=== PATIENT | male | born 1955 | race Caucasian/White ===

== ENCOUNTER → 2021-06-11 | Outpatient (CLI) | payer MEDICARE | END | disposition home or self-care (01) | LOC: CARD 14:42 | PROVIDERS: ATTEND Internal Medicine | DX: R06.02 Shortness of breath (principal) ==

== ENCOUNTER 2021-06-27 02:39 | Emergency (ER) | payer MEDICARE ==
[~2021-06-27] VITALS: Ht 172.7 cm; Wt 77.1 kg
[2021-06-27] MEDS ORDERED: NAPROXEN250 MG PO (03:04)
== END 2021-06-27 03:11 | disposition home or self-care (01) ==
LOC: ED 02:39
DX: S93.401A Sprain of unspecified ligament of right ankle, initial encounter (principal); X50.1XXA Overexertion from prolonged static or awkward postures, initial encounter; Y93.89 Activity, other specified; Y92.89 Other specified places as the place of occurrence of the external cause; Y99.8 Other external cause status

== ENCOUNTER 2021-09-24 23:01 | Emergency (ER) | payer MEDICARE ==
[~2021-09-24 23:01] MED LIST: NAPROXEN250 MG PO
[2021-09-24 23:35] LABS: BASO % 0.2 % (0.0-1.0); EOS # 0.1 10*3/uL (0.0-0.4); EOS % 1.1 % (1.0-4.0); HEMATOCRIT 40.8 % (42.0-52.0); LYMPH # 0.3 10*3/uL (1.3-4.4); LYMPH % 7.2 % (27.0-41.0); MEAN CELL VOLUME 93.6 fl (80.0-94.0); MEAN CORPUSCULAR HGB CONC 33.1 g/dl (33.0-37.0); MONO # 0.6 10*3/uL (0.1-1.0); NEUT # 3.4 10*3/uL (2.3-7.9); NEUT % 77.3 % (47.0-73.0); PLATELET COUNT AUTOMATED 165 10*3/uL (130-400); RED BLOOD COUNT 4.36 10*6/uL (4.50-5.90); RED CELL DISTRI WIDTH 12.2 % (0-14.5); WHITE BLOOD COUNT 4.4 10*3/uL (4.8-10.8)
[2021-09-24 23:51] LABS: ALKALINE PHOSPHATASE 97 U/L (45-117); BUN 39 mg/dl (7-24); CHLORIDE 109 mmol/L (98-107); CREATININE 1.31 mg/dL (0.70-1.30); POTASSIUM 5.5 mmol/L (3.5-5.1); SGOT/AST 26 IU/L (3-35); SGPT/ALT 26 U/L (12-78); SODIUM 135 mmol/L (136-145); TOTAL PROTEIN 7.7 gm/dL (6.4-8.2)
[2021-09-25] MEDS ORDERED: METFORMIN HYDR500 MG PO (02:04)
[2021-09-25] MEDS ORDERED: NEURONTIN300 MG PO (02:04)
== END 2021-09-25 02:20 | disposition home or self-care (01) ==
LOC: ED 23:01
PROVIDERS: Internal Medicine
DX: U07.1 COVID-19 (principal); E87.8 Other disorders of electrolyte and fluid balance, not elsewhere classified; R73.9 Hyperglycemia, unspecified; N17.9 Acute kidney failure, unspecified

== ENCOUNTER 2022-07-09 20:54 | Emergency (ER) | payer MEDICARE ==
[~2022-07-09] VITALS: Ht 172.7 cm; Wt 72.6 kg
[~2022-07-09 20:54] MED LIST changes: +METFORMIN HYDR500 MG PO; +NEURONTIN300 MG PO
== END 2022-07-09 21:50 ==
LOC: ED 20:54
DX: Z13.89 Encounter for screening for other disorder (principal)

== ENCOUNTER → 2023-08-22 | Outpatient (CLI) | payer MEDICARE ==
[2023-08-22 12:22] LABS: BUN 18 mg/dl (9-23); CHLORIDE 109 mmol/L (98-107); POTASSIUM 5.2 mmol/L (3.4-5.1); T3 UPTAKE 32.4 % (22.4-36.7)
== END | disposition home or self-care (01) ==
LOC: LAB 11:35
PROVIDERS: ATTEND Internal Medicine
DX: E03.9 Hypothyroidism, unspecified (principal); I10 Essential (primary) hypertension

== ENCOUNTER 2024-10-03 07:41 | Emergency (ER) | payer MEDICARE ==
[~2024-10-03] VITALS: Wt 77.1 kg
[2024-10-03] MEDS ORDERED: Dexamethasone Sodium Phospha 20 MG/5 ML VIAL IM ONE (08:25)
[2024-10-03] MEDS ORDERED: MEDROL DOSEPAK4 MG PO (09:09)
== END 2024-10-03 09:13 | disposition home or self-care (01) ==
LOC: ED 07:41
DX: S46.912A Strain of unspecified muscle, fascia and tendon at shoulder and upper arm level, left arm, initial encounter (principal); Z88.0 Allergy status to penicillin; Z79.899 Other long term (current) drug therapy; Z79.84 Long term (current) use of oral hypoglycemic drugs; X58.XXXA Exposure to other specified factors, initial encounter; Y93.89 Activity, other specified; Y92.89 Other specified places as the place of occurrence of the external cause; Y99.8 Other external cause status

== ENCOUNTER → 2024-10-12 | Outpatient (CLI) | payer MEDICARE ==
[~2024-10-12] MED LIST changes: +MEDROL DOSEPAK4 MG PO
== END | disposition home or self-care (01) ==
LOC: MRI 07:32
PROVIDERS: ATTEND Internal Medicine
DX: M19.012 Primary osteoarthritis, left shoulder (principal); M75.52 Bursitis of left shoulder; M62.89 Other specified disorders of muscle; M77.8 Other enthesopathies, not elsewhere classified; M25.512 Pain in left shoulder

== ENCOUNTER 2024-12-06 11:18 | Emergency (ER) | payer OTHER ==
[~2024-12-06] VITALS: Ht 170.1 cm; Wt 64.4 kg
[2024-12-06] MEDS ORDERED: ACTOS30 M1 PO (11:25)
[2024-12-06] MEDS ORDERED: LISINOPRIL5 MG PO (11:25)
[2024-12-06] MEDS ORDERED: MELOXICAM7.5 MG PO (11:25)
[2024-12-06] MEDS ORDERED: SIMVASTATIN10 MG PO (11:25)
[2024-12-06] MEDS ORDERED: GLIMEPIRIDE4 M1 PO (11:25)
[2024-12-06] MEDS ORDERED: SODIUM CHLORIDE 0.9% 1,000 ML IV SCH (11:30)
[2024-12-06] MEDS ORDERED: IOHEXOL 300 MG/ML 100 ML VIAL IV ONE (11:35)
[2024-12-06] MEDS ORDERED: Tdap Vaccine 0.5 ML SYR (Adult Vaccine) IM ONE (11:40)
[2024-12-06 11:53] LABS: BASO # 0.0 10*3/uL (0.0-0.1); BASO % 0.2 % (0.0-1.0); EOS # 0.1 10*3/uL (0.0-0.4); EOS % 1.3 % (1.0-4.0); MEAN CELL VOLUME 97.5 fl (80.0-94.0); MEAN CORPUSCULAR HGB 31.4 pg (27.0-31.0); MEAN PLATELET VOLUME 10.3 fl (9.6-12.3); MONO # 0.6 10*3/uL (0.1-1.0); MONO % 10.1 % (3.0-9.0); NEUT # 3.2 10*3/uL (2.3-7.9); NEUT % 58.1 % (47.0-73.0); NUCLEATED RED BLOOD CELL 0.0 % (0.0-0.0); NUCLEATED RED BLOOD CELL 0.0 10*3/uL (0.0-0.0); PLATELET COUNT AUTOMATED 159 10*3/uL (130-400); RED CELL DISTRI WIDTH 12.5 % (0-14.5)
[2024-12-06 12:17] LABS: BUN 22 mg/dl (9-23)
[2024-12-06] MEDS ORDERED: Ondansetron Hydrochloride 4 MG/2 ML VIAL IV ONE (12:55)
[2024-12-06] MEDS ORDERED: CLINDAMYCIN HC300 MG PO (14:11)
[2024-12-06] MEDS ORDERED: NAPROSYN500 MG PO (14:11)
== END 2024-12-06 14:30 | disposition home or self-care (01) ==
LOC: ED 11:18
PROVIDERS: Emergency Medicine
DX: S01.01XA Laceration without foreign body of scalp, initial encounter (principal); L03.211 Cellulitis of face; K02.9 Dental caries, unspecified; E11.9 Type 2 diabetes mellitus without complications; I10 Essential (primary) hypertension; E78.5 Hyperlipidemia, unspecified; Z88.0 Allergy status to penicillin; Z87.891 Personal history of nicotine dependence; Z79.84 Long term (current) use of oral hypoglycemic drugs; Z79.899 Other long term (current) drug therapy; W18.09XA Striking against other object with subsequent fall, initial encounter; Y93.89 Activity, other specified; Y92.89 Other specified places as the place of occurrence of the external cause; Y99.8 Other external cause status

== ENCOUNTER 2025-02-04 12:23 | Inpatient (IN) | payer MEDICARE ==
[~2025-02-04] VITALS: Ht 170.1 cm; Wt 66.4 kg
[~2025-02-04 12:23] MED LIST changes: +ACTOS30 M1 PO; +CLINDAMYCIN HC300 MG PO; +FEROSUL325 MG PO; +GLIMEPIRIDE4 M1 PO; +LISINOPRIL5 MG PO; +MELOXICAM7.5 MG PO; +NAPROSYN500 MG PO; +SIMVASTATIN10 MG PO; +TRAD5TAB1 PO
[2025-02-04 12:28] VITALS: BP 112/67
[2025-02-04 13:30] LABS: BASO # 0.0 10*3/uL (0.0-0.1); BASO % 0.3 % (0.0-1.0); EOS # 0.1 10*3/uL (0.0-0.4); EOS % 2.8 % (1.0-4.0); MEAN CELL VOLUME 95.7 fl (80.0-94.0); MEAN CORPUSCULAR HGB 30.6 pg (27.0-31.0); MEAN PLATELET VOLUME 10.2 fl (9.6-12.3); MONO # 0.5 10*3/uL (0.1-1.0); MONO % 13.9 % (3.0-9.0); NEUT # 1.6 10*3/uL (2.3-7.9); NEUT % 44.2 % (47.0-73.0); NUCLEATED RED BLOOD CELL 0.0 % (0.0-0.0); NUCLEATED RED BLOOD CELL 0.0 10*3/uL (0.0-0.0); PLATELET COUNT AUTOMATED 149 10*3/uL (130-400); RED CELL DISTRI WIDTH 12.0 % (0-14.5)
[2025-02-04] MEDS ORDERED: HYDROmorphONE Hydrochloride 0.5 MG/0.5 ML SYRINGE IV ONE (13:55)
[2025-02-04 14:03] LABS: BUN 35 mg/dl (9-23)
[2025-02-04] MEDS ORDERED: SODIUM CHLORIDE 0.9% 1,000 ML IV ONE (16:45)
[2025-02-04] MEDS ORDERED: SODIUM CHLORIDE 0.9% 1,000 ML IV SCH (18:45)
[2025-02-04 19:40] VITALS: BP 128/52
[2025-02-04 20:10] VITALS: BP 136/53
[2025-02-04 20:20] VITALS: BP 148/56
[2025-02-04] MEDS ORDERED: Midodrine Hydrochloride 5 MG TAB PO SCH (22:00)
[2025-02-05] VITALS: BP 148/45
[2025-02-05 06:10] LABS: BASO # 0.0 10*3/uL (0.0-0.1); BASO % 0.3 % (0.0-1.0); EOS # 0.1 10*3/uL (0.0-0.4); EOS % 3.2 % (1.0-4.0); MEAN CELL VOLUME 94.1 fl (80.0-94.0); MEAN CORPUSCULAR HGB 30.7 pg (27.0-31.0); MEAN PLATELET VOLUME 10.7 fl (9.6-12.3); MONO # 0.4 10*3/uL (0.1-1.0); MONO % 11.9 % (3.0-9.0); NEUT # 1.7 10*3/uL (2.3-7.9); NEUT % 44.8 % (47.0-73.0); NUCLEATED RED BLOOD CELL 0.0 % (0.0-0.0); NUCLEATED RED BLOOD CELL 0.0 10*3/uL (0.0-0.0); PLATELET COUNT AUTOMATED 144 10*3/uL (130-400); RED CELL DISTRI WIDTH 12.0 % (0-14.5)
[2025-02-05 06:54] LABS: BUN 25 mg/dl (9-23)
[2025-02-05 08:00] VITALS: BP 138/69
[2025-02-05] MEDS ORDERED: LISINOPRIL 5 MG TAB PO SCH (10:00)
[2025-02-05] MEDS ORDERED: LINAGLIPTIN 5 MG TAB PO SCH (10:00)
[2025-02-05] MEDS ORDERED: FERROUS SULFATE 325 MG TAB PO SCH (10:00)
[2025-02-05 12:00] VITALS: BP 137/68
[2025-02-05] MEDS ORDERED: DEXTROSE 50% 25 GM/50 ML VIAL IV PRN (12:25)
[2025-02-05 16:00] VITALS: BP 112/43
[2025-02-05] MEDS ORDERED: GLIMEPIRIDE 2 MG TAB PO SCH (16:30)
[2025-02-05] MEDS ORDERED: INSULIN LISPRO 1 UNIT/0.01 ML SQ SCH (16:30)
[2025-02-05 20:00] VITALS: BP 145/67
[2025-02-05] MEDS ORDERED: GABAPENTIN 300 MG CAP PO SCH (22:00)
[2025-02-05] MEDS ORDERED: SIMVASTATIN 20 MG TAB PO SCH (22:00)
[2025-02-06] VITALS: BP 117/57
[2025-02-06 06:35] LABS: BASO # 0.0 10*3/uL (0.0-0.1); BASO % 0.3 % (0.0-1.0); EOS # 0.1 10*3/uL (0.0-0.4); EOS % 2.9 % (1.0-4.0); MEAN CELL VOLUME 96.2 fl (80.0-94.0); MEAN CORPUSCULAR HGB 29.9 pg (27.0-31.0); MEAN PLATELET VOLUME 11.0 fl (9.6-12.3); MONO # 0.4 10*3/uL (0.1-1.0); MONO % 11.0 % (3.0-9.0); NEUT # 1.8 10*3/uL (2.3-7.9); NEUT % 47.7 % (47.0-73.0); NUCLEATED RED BLOOD CELL 0.0 % (0.0-0.0); NUCLEATED RED BLOOD CELL 0.0 10*3/uL (0.0-0.0); PLATELET COUNT AUTOMATED 142 10*3/uL (130-400); RED CELL DISTRI WIDTH 11.9 % (0-14.5)
[2025-02-06 07:36] LABS: BUN 36 mg/dl (9-23)
[2025-02-06 08:00] VITALS: BP 115/57
[2025-02-06 12:00] VITALS: BP 112/58
[2025-02-06 15:53] VITALS: BP 141/62
== END 2025-02-06 15:57 | DRG 74 ==
LOC: ED 12:23 → EDHOLD 16:50 → 4E 16:50
PROVIDERS: Internal Medicine; Nurse Practitioner Family; ADMIT Internal Medicine; ATTEND Internal Medicine
DX: G90.9 Disorder of the autonomic nervous system, unspecified (principal); E87.5 Hyperkalemia; I95.1 Orthostatic hypotension; E11.42 Type 2 diabetes mellitus with diabetic polyneuropathy; E78.2 Mixed hyperlipidemia; I10 Essential (primary) hypertension; D72.819 Decreased white blood cell count, unspecified; D53.9 Nutritional anemia, unspecified; E11.65 Type 2 diabetes mellitus with hyperglycemia; Z86.16 Personal history of COVID-19; Z88.0 Allergy status to penicillin; Z79.899 Other long term (current) drug therapy; Z79.01 Long term (current) use of anticoagulants; Z79.2 Long term (current) use of antibiotics

== ENCOUNTER 2025-03-26 23:05 | Emergency (ER) | payer MEDICARE ==
[~2025-03-26] VITALS: Ht 170.1 cm; Wt 68.0 kg
[2025-03-27 00:05] LABS: BASO # 0.0 10*3/uL (0.0-0.1); BASO % 0.0 % (0.0-1.0); EOS # 0.1 10*3/uL (0.0-0.4); EOS % 2.0 % (1.0-4.0); MEAN CELL VOLUME 92.1 fl (80.0-94.0); MEAN CORPUSCULAR HGB 28.6 pg (27.0-31.0); MEAN PLATELET VOLUME 11.0 fl (9.6-12.3); MONO # 0.4 10*3/uL (0.1-1.0); MONO % 11.0 % (3.0-9.0); NEUT # 1.9 10*3/uL (2.3-7.9); NEUT % 54.0 % (47.0-73.0); NUCLEATED RED BLOOD CELL 0.0 % (0.0-0.0); NUCLEATED RED BLOOD CELL 0.0 10*3/uL (0.0-0.0); PLATELET COUNT AUTOMATED 142 10*3/uL (130-400); RED CELL DISTRI WIDTH 13.2 % (0-14.5)
[2025-03-27 00:22] LABS: BUN 27 mg/dl (9-23)
[2025-03-27] MEDS ORDERED: BUMETANIDE 1 MG/4 ML VIAL IV ONE (00:40)
== END 2025-03-27 02:43 | disposition home or self-care (01) ==
LOC: ED 23:05
PROVIDERS: Internal Medicine
DX: I11.0 Hypertensive heart disease with heart failure (principal); I50.9 Heart failure, unspecified; E11.65 Type 2 diabetes mellitus with hyperglycemia; D72.819 Decreased white blood cell count, unspecified; E78.5 Hyperlipidemia, unspecified; D64.9 Anemia, unspecified; R00.0 Tachycardia, unspecified; Z88.0 Allergy status to penicillin

== ENCOUNTER 2025-03-27 16:37 | Inpatient (IN) | payer MEDICARE ==
[~2025-03-27] VITALS: Ht 172.7 cm; Wt 69.6 kg
[2025-03-27 16:49] VITALS: BP 138/71
[2025-03-27 17:09] LABS: BASO # 0.0 10*3/uL (0.0-0.1); BASO % 0.2 % (0.0-1.0); EOS # 0.1 10*3/uL (0.0-0.4); EOS % 3.3 % (1.0-4.0); MEAN CELL VOLUME 92.1 fl (80.0-94.0); MEAN CORPUSCULAR HGB 28.6 pg (27.0-31.0); MEAN PLATELET VOLUME 11.2 fl (9.6-12.3); MONO # 0.4 10*3/uL (0.1-1.0); MONO % 9.9 % (3.0-9.0); NEUT # 2.2 10*3/uL (2.3-7.9); NEUT % 52.4 % (47.0-73.0); NUCLEATED RED BLOOD CELL 0.0 % (0.0-0.0); NUCLEATED RED BLOOD CELL 0.0 10*3/uL (0.0-0.0); PLATELET COUNT AUTOMATED 134 10*3/uL (130-400); RED CELL DISTRI WIDTH 13.3 % (0-14.5)
[2025-03-27 17:31] LABS: BUN 35 mg/dl (9-23); SGPT/ALT 29 U/L (5-49)
[2025-03-27] MEDS ORDERED: IOHEXOL 350 MG/ML 100 ML VIAL IV ONE (17:45)
[2025-03-27] MEDS ORDERED: SODIUM CHLORIDE 0.9% 100 ML BAG IV ONE (17:45)
[2025-03-27] MEDS ORDERED: BUMETANIDE 1 MG/4 ML VIAL IV ONE (17:50)
[2025-03-27 19:05] LABS: BILIRUBIN Negative (Negative); BLOOD Negative (Negative); CLARITY Clear (Clear); COLOR Yellow (Yellow); KETONE Negative (Negative); LEUKO ESTERASE Negative (Negative); NITRITE Negative (Negative); PH 6.0 (4.5-8.0); SPECIFIC GRAVITY >= 1.030 (1.001-1.030); UROBILINOGEN 0.2 E.U./dl (0.0-1.0)
[2025-03-27 19:11] LABS: BACTERIA TRACE
[2025-03-27 20:21] VITALS: BP 134/72
[2025-03-27] MEDS ORDERED: Albuterol Sulf/Ipratropium 3 ML VIAL NEB SCH (21:45)
[2025-03-27 21:50] VITALS: BP 139/78
[2025-03-27] MEDS ORDERED: DEXTROSE 10 % IN WATER 250 ML IV PRN (21:55)
[2025-03-27] MEDS ORDERED: INSULIN REGULAR, HUMAN 1 UNIT/0.01 ML SC SCH (22:00)
[2025-03-28] VITALS: BP 154/86
[2025-03-28] MEDS ORDERED: ACETAMINOPHEN 500 MG TAB PO PRN (03:40)
[2025-03-28] MEDS ORDERED: ACETAMINOPHEN 500 MG TAB PO SCH (06:00)
[2025-03-28 08:00] VITALS: BP 112/79
[2025-03-28 12:00] VITALS: BP 155/85
[2025-03-28] MEDS ORDERED: DIVALPROEX ER 500 MG TAB PO ONE (13:55)
[2025-03-28] MEDS ORDERED: busPIRone Hydrochloride 10 MG TAB PO SCH (14:00)
[2025-03-28 16:00] VITALS: BP 138/74
[2025-03-28] MEDS ORDERED: INSULIN REGULAR, HUMAN 1 UNIT/0.01 ML IV ONE (16:45)
[2025-03-28] MEDS ORDERED: BUMETANIDE 1 MG/4 ML VIAL IV SCH (18:30)
[2025-03-28] MEDS ORDERED: GLIMEPIRIDE 2 MG TAB PO SCH (18:35)
[2025-03-28 20:00] VITALS: BP 130/70
[2025-03-28] MEDS ORDERED: GABAPENTIN 300 MG CAP PO SCH (22:00)
[2025-03-29] VITALS: BP 112/88
[2025-03-29 05:59] LABS: BUN 37 mg/dl (9-23)
[2025-03-29 08:00] VITALS: BP 132/73
[2025-03-29] MEDS ORDERED: LINAGLIPTIN 5 MG TAB PO SCH (10:00)
[2025-03-29] MEDS ORDERED: DIVALPROEX ER 500 MG TAB PO SCH (10:00)
[2025-03-29] MEDS ORDERED: DIVALPROEX (DR) 500 MG TAB PO SCH (10:00)
[2025-03-29 12:00] VITALS: BP 154/85
[2025-03-29 16:00] VITALS: BP 128/82
[2025-03-29 20:00] VITALS: BP 138/68
[2025-03-29] MEDS ORDERED: ATORVASTATIN CALCIUM 20 MG TAB PO SCH (22:00)
[2025-03-30] VITALS: BP 122/68
[2025-03-30 04:40] LABS: BUN 42 mg/dl (9-23)
[2025-03-30 08:00] VITALS: BP 129/63
[2025-03-30] MEDS ORDERED: BUMETANIDE 1 MG/4 ML VIAL IV SCH (10:00)
[2025-03-30 10:55] VITALS: BP 132/70
[2025-03-30 12:00] VITALS: BP 136/70
== END 2025-03-30 13:15 | disposition left against medical advice (07) | DRG 291 ==
LOC: ED 16:37 → EDHOLD 19:19 → 4E 19:19
PROVIDERS: Nurse Practitioner Family; ADMIT Internal Medicine; ATTEND Internal Medicine
DX: I11.0 Hypertensive heart disease with heart failure (principal); I50.21 Acute systolic (congestive) heart failure; R00.0 Tachycardia, unspecified; D72.819 Decreased white blood cell count, unspecified; F41.1 Generalized anxiety disorder; E78.2 Mixed hyperlipidemia; E11.42 Type 2 diabetes mellitus with diabetic polyneuropathy; E11.65 Type 2 diabetes mellitus with hyperglycemia; Z53.29 Procedure and treatment not carried out because of patient's decision for other reasons; M15.9 Polyosteoarthritis, unspecified; Z88.0 Allergy status to penicillin; Z79.4 Long term (current) use of insulin